=== PATIENT | male | born 1990 | race Native Hawaiian/Other Pacific Islander ===

== ENCOUNTER 2016-12-17 15:38 | Emergency (ER) | payer OTHER ==
[~2016-12-17] VITALS: Ht 162.6 cm; Wt 196.9 kg
[2016-12-17] MEDS ORDERED: LYRICA75 MG OR (15:48)
[2016-12-17] MEDS ORDERED: CYCL10TA35 PO (15:48)
[2016-12-17] MEDS ORDERED: LORA1TAB17 PO (15:49)
[2016-12-17] MEDS ORDERED: RANITIDINE 150150 MG PO (15:49)
[2016-12-17] MEDS ORDERED: ZOCOR80 MG OR (15:49)
== END 2016-12-17 17:26 | disposition home or self-care (01) ==
LOC: ED 15:38
DX: M72.2 Plantar fascial fibromatosis (principal)
CPT/HCPCS: 99281